=== PATIENT | male | born 1935 | race Caucasian/White ===

== ENCOUNTER 2019-11-22 11:56 | Observation (INO) | payer MEDICARE ==
--- NOTE | 2019-11-22 12:38 | EDM.PDOC ---
ED HPI GENERAL MEDICAL PROBLEM - General Chief Complaint: General Stated Complaint: [facility] Time Seen by Provider: 11/22/19 12:10 Source of Information: Reports: Patient, EMS, Police History Limitations: Reports: No Limitations - History of Present Illness INITIAL COMMENTS - FREE TEXT/NARRATIVE: 84-year-old male, somewhat upset that he is here, was brought in after the police pulled him over for swerving. He admits he has not felt real well the last couple of days and was not able to eat breakfast this morning because he felt nauseated. Denies any pain, denies shortness of breath, denies vomiting, diarrhea, rashes or joint pains. No headache, just generalized malaise. Onset: Unknown/Unsure (Says he has not been feeling well for the last 3 days) Location: Reports: Generalized Associated Symptoms: Reports: Loss of Appetite, Malaise, Nausea/Vomiting ( Nausea but no vomiting), Weakness. Denies: Confusion, Chest Pain, Cough, Fever/ Chills, Headaches, Rash - Related Data Allergies Allergy/AdvReac Type Severity Reaction Status Date / Time Penicillins Allergy Headache Verified 11/22/19 12:00 Home Meds: Home Meds metFORMIN [Glucophage] 500 mg PO BIDMEALS 11/22/19 [History] Past Medical History HEENT History: Reports: Impaired Vision Endocrine/Metabolic History: Reports: Diabetes, Type II - Past Surgical History Head Surgeries/Procedures: Reports: None HEENT Surgical History: Reports: None Endocrine Surgical History: Reports: None Dermatological Surgical History: Reports: None Social & Family History - Tobacco Use Smoking Status *Q: Never Smoker Second Hand Smoke Exposure: No - Caffeine Use Caffeine Use: Reports: Coffee - Recreational Drug Use Recreational Drug Use: No ED ROS GENERAL - Review of Systems Review Of Systems: See Below Constitutional: Reports: Malaise, Decreased Appetite. Denies: Fever, Chills HEENT: Denies: Vision Change Respiratory: Denies: Shortness of Breath Cardiovascular: Denies: Chest Pain GI/Abdominal: Reports: Nausea. Denies: Abdominal Pain, Constipation, Diarrhea, Vomiting : Reports: No Symptoms Musculoskeletal: Reports: No Symptoms Skin: Reports: Pallor Neurological: Reports: Dizziness, Weakness. Denies: Headache Psychiatric: Reports: No Symptoms ED EXAM, GENERAL - Physical Exam Exam: See Below Exam Limited By: No Limitations General Appearance: Alert, No Apparent Distress Eye Exam: Bilateral Eye: Normal Inspection Head: Atraumatic Neck: Supple, Non-Tender Respiratory/Chest: Lungs Clear Cardiovascular: Regular Rate, Rhythm. No: Extra Beats GI/Abdominal: Soft, Non-Tender Extremities: Normal Inspection. No: Pedal Edema Neurological: Alert, Oriented, No Motor/Sensory Deficits Psychiatric: Flat Affect Skin Exam: Warm, Dry Course - Vital Signs Last Recorded V/S: Last Vital Signs Temp 101.7 F H 11/22/19 16:21 Pulse 101 H 11/22/19 15:58 Resp 28 H 11/22/19 15:58 BP 119/78 11/22/19 15:58 Pulse Ox 96 11/22/19 15:58 - Orders/Labs/Meds Orders: Active Orders 24 hr Category Date Time Status Patient Status [ADT] Routine ADT 11/22/19 15:50 Active Antiembolic Devices [RC] .Routine Care 11/22/19 15:50 Active Intake and Output [RC] QSHIFT Care 11/22/19 15:50 Active Notify Provider Vital Signs [RC] ASDIRECTED Care 11/22/19 15:50 Active Oxygen Therapy [RC] PRN Care 11/22/19 15:50 Active RT Aerosol Therapy [RC] ASDIRECTED Care 11/22/19 15:50 Active Up With Assistance [RC] ASDIRECTED Care 11/22/19 15:50 Active VTE/DVT Education [RC] Per Unit Routine Care 11/22/19 15:50 Active Vital Signs [RC] Q4H Care 11/22/19 15:50 Active PT Evaluation and Treatment [CONS] Routine Cons 11/22/19 15:50 Active Consistent Carbohydrate Diet [DIET] Diet 11/22/19 Dinner Active BABESIA MICROTI ANTIBODY PANEL Urgent Lab 11/22/19 11:30 Received CBC W/O DIFF,HEMOGRAM [HEME] AM Lab 11/23/19 05:11 Ordered COMPREHENSIVE METABOLIC PN,CMP [CHEM] AM Lab 11/23/19 05:11 Ordered CULTURE BLOOD [BC] Urgent Lab 11/22/19 14:13 Received CULTURE BLOOD [BC] Urgent Lab 11/22/19 14:16 Received HUMAN GRANULOCYTIC LIU-HGE Urgent Lab 11/22/19 11:30 Received LYME, TOTAL AB TEST/REFLEX Urgent Lab 11/22/19 11:30 Received Acetaminophen [Tylenol] Med 11/22/19 15:50 Active 650 mg PO Q4H PRN Albuterol [Proventil Neb Soln] Med 11/22/19 15:50 Active 2.5 mg NEB Q4H PRN Docusate Sodium/Sennosides [Senna Plus] Med 11/22/19 15:50 Active 1 tab PO BID PRN Doxycycline [Vibramycin] 100 mg Med 11/23/19 06:00 Active Sodium Chloride 0.9% [Normal Saline] 100 ml IV Q12H Ibuprofen [Motrin] Med 11/22/19 15:50 Active 600 mg PO Q6H PRN LORazepam [Ativan] Med 11/22/19 15:50 Active 0.5 mg IVPUSH Q4H PRN Magnesium Hydroxide [Milk of Magnesia] Med 11/22/19 15:50 Active 30 ml PO Q12H PRN Melatonin Med 11/22/19 21:00 Active 9 mg PO BEDTIME Ondansetron [Zofran ODT] Med 11/22/19 15:50 Active 4 mg PO Q6H PRN Ondansetron [Zofran] Med 11/22/19 15:50 Active 4 mg IV Q6H PRN Sodium Chloride 0.9% [Normal Saline] 1,000 ml Med 11/22/19 15:50 Active IV ASDIRECTED metFORMIN [Glucophage] Med 11/22/19 17:00 Pending 500 mg PO BIDMEALS Blood Culture x2 Reflex Set [OM.PC] Urgent Oth 11/22/19 14:05 Ordered Sequential Compression Device [OM.PC] Routine Oth 11/22/19 15:50 Ordered Resuscitation Status Routine Resus Stat 11/22/19 14:49 Ordered Medication Orders Acetaminophen (Tylenol) 650 mg PO Q4H PRN PRN Reason: Pain (Mild 1-3)/fever Albuterol (Proventil Neb Soln) 2.5 mg NEB Q4H PRN PRN Reason: Shortness Of Breath/wheezing Doxycycline Hyclate 100 mg/ (Sodium Chloride) 100 mls @ 100 mls/hr IV Q12H LORETO Sodium Chloride (Normal Saline) 1,000 mls @ 100 mls/hr IV ASDIRECTED LORETO Ibuprofen (Motrin) 600 mg PO Q6H PRN PRN Reason: Pain/Fever Last Admin: 11/22/19 16:21 Dose: 600 mg Lorazepam (Ativan) 0.5 mg IVPUSH Q4H PRN PRN Reason: Nausea/Vomiting Magnesium Hydroxide (Milk Of Magnesia) 30 ml PO Q12H PRN PRN Reason: Constipation Melatonin (Melatonin) 9 mg PO BEDTIME LORETO Metformin HCl (Glucophage) 500 mg PO BIDMEALS LORETO Ondansetron HCl (Zofran Odt) 4 mg PO Q6H PRN PRN Reason: Nausea able to take PO Ondansetron HCl (Zofran) 4 mg IV Q6H PRN PRN Reason: Nausea/Vomiting Senna/Docusate Sodium (Senna Plus) 1 tab PO BID PRN PRN Reason: Constipation Labs: Laboratory Tests 11/22/19 11/22/19 11/22/19 Range/Units 12:40 12:40 14:05 WBC 2.6 L (4.5-11.0) K/uL RBC 4.69 (4.30-5.90) M/uL Hgb 14.9 (12.0-15.0) g/dL Hct 44.8 (40.0-54.0) % MCV 96 (80-98) fL MCH 32 H (27-31) pg MCHC 33 (32-36) % Plt Count 132 L (150-400) K/uL Neut % (Auto) 81 H (36-66) % Lymph % (Auto) 11 L (24-44) % [place] % (Auto) 7 H (2-6) % Eos % (Auto) 0 L (2-4) % Baso % (Auto) 1 (0-1) % Sodium 132 L (140-148) mmol/L Potassium 4.6 (3.6-5.2) mmol/L Chloride 97 L (100-108) mmol/L Carbon Dioxide 26 (21-32) mmol/L Anion Gap 13.6 (5.0-14.0) mmol/L BUN 18 (7-18) mg/dL Creatinine 1.2 (0.8-1.3) mg/dL Est Cr Clr Drug Dosing 49.68 mL/min Estimated GFR (MDRD) 58 L (>60) Glucose 160 H (74-106) mg/dL Lactic Acid 2.3 H (0.4-2.0) mmol/L Calcium 8.8 (8.5-10.1) mg/dL Total Bilirubin 0.6 (0.2-1.0) mg/dL AST 43 H (15-37) U/L ALT 42 (12-78) U/L Alkaline Phosphatase 109 (46-116) U/L Troponin I < 0.017 (0.000-0.056) ng/mL C-Reactive Protein (0.0-0.3) mg/dL Total Protein 7.3 (6.4-8.2) g/dL Albumin 3.5 (3.4-5.0) g/dL Globulin 3.8 H (2.3-3.5) g/dL Albumin/Globulin Ratio 0.9 L (1.2-2.2) Procalcitonin ng/mL 11/22/19 11/22/19 Range/Units 14:05 14:05 WBC (4.5-11.0) K/uL RBC (4.30-5.90) M/uL Hgb (12.0-15.0) g/dL Hct (40.0-54.0) % MCV (80-98) fL MCH (27-31) pg MCHC (32-36) % Plt Count (150-400) K/uL Neut % (Auto) (36-66) % Lymph % (Auto) (24-44) % [place] % (Auto) (2-6) % Eos % (Auto) (2-4) % Baso % (Auto) (0-1) % Sodium (140-148) mmol/L Potassium (3.6-5.2) mmol/L Chloride (100-108) mmol/L Carbon Dioxide (21-32) mmol/L Anion Gap (5.0-14.0) mmol/L BUN (7-18) mg/dL Creatinine (0.8-1.3) mg/dL Est Cr Clr Drug Dosing mL/min Estimated GFR (MDRD) (>60) Glucose (74-106) mg/dL Lactic Acid (0.4-2.0) mmol/L Calcium (8.5-10.1) mg/dL Total Bilirubin (0.2-1.0) mg/dL AST (15-37) U/L ALT (12-78) U/L Alkaline Phosphatase (46-116) U/L Troponin I (0.000-0.056) ng/mL C-Reactive Protein 3.77 H (0.0-0.3) mg/dL Total Protein (6.4-8.2) g/dL Albumin (3.4-5.0) g/dL Globulin (2.3-3.5) g/dL Albumin/Globulin Ratio (1.2-2.2) Procalcitonin 0.41 ng/mL Meds: Medications Generic Name Dose Route Start Last Admin Trade Name Fredaron PRN Reason Stop Dose Admin Acetaminophen 650 mg 11/22/19 15:50 Tylenol PO Q4H PRN Pain (Mild 1-3)/fever Albuterol 2.5 mg 11/22/19 15:50 Proventil Neb Soln NEB Q4H PRN Shortness Of Breath/wheezing Doxycycline Hyclate 100 mg/ 100 mls @ 100 mls/hr 11/23/19 06:00 Sodium Chloride IV Q12H [facility] Sodium Chloride 1,000 mls @ 100 mls/hr 11/22/19 15:50 Normal Saline IV ASDIRECTED [facility] Ibuprofen 600 mg 11/22/19 15:50 11/22/19 16:21 Motrin PO 600 mg Q6H PRN Administration Pain/Fever Lorazepam 0.5 mg 11/22/19 15:50 Ativan IVPUSH Q4H PRN Nausea/Vomiting Magnesium Hydroxide 30 ml 11/22/19 15:50 Milk Of Magnesia PO Q12H PRN Constipation Melatonin 9 mg 11/22/19 21:00 Melatonin PO BEDTIME [facility] Metformin HCl 500 mg 11/22/19 17:00 Glucophage PO BIDMEALS [facility] Ondansetron HCl 4 mg 11/22/19 15:50 Zofran Odt PO Q6H PRN Nausea able to take PO Ondansetron HCl 4 mg 11/22/19 15:50 Zofran IV Q6H PRN Nausea/Vomiting Senna/Docusate Sodium 1 tab 11/22/19 15:50 Senna Plus PO BID PRN Constipation Discontinued Medications Generic Name Dose Route Start Last Admin Trade Name Fredaron PRN Reason Stop Dose Admin Doxycycline Hyclate 200 mg/ 250 mls @ 165 mls/hr 11/22/19 14:03 11/22/19 14: 28 Sodium Chloride IV 11/22/19 15:33 165 mls/hr ONETIME ONE Administration Sodium Chloride 1,000 mls @ 1,000 mls/hr 11/22/19 14:15 11/22/19 14:14 Normal Saline IV 1,000 mls/hr ASDIRECTED [facility] Administration - Re-Assessments/Exams Free Text/Narrative Re-Assessment/Exam: 11/22/19 12:37 CBC CMP and troponin were obtained and the patient will be kept on cardiac monitoring. A call was put into his primary provider as we have no access to his records. 11/22/19 14:39 White count is low, AST is elevated, patient became slightly more confused and weak while in the emergency room and mildly tachycardic. He was assisted up to use the bathroom and became incontinent and more confused. 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 An IV was started, CRP, procalcitonin, tick panel was drawn and after blood cultures 200 mg of IV doxycycline was ordered. I talked to Dr. Kenny of the hospitalist service to consider admission and he kindly agreed to see the patient to evaluate for admission and treatment of anticipated anaplasmosis or other septicemia. 11/22/19 16:54 Procalcitonin is normal, CRP 3.77. IV doxycycline was initiated and patient was admitted. Departure - Departure Time of Disposition: 15:46 Disposition: Admitted As Inpatient 67 Clinical Impression: Confusion, Weakness - Discharge Information Sepsis Event Note - Evaluation Sepsis Screening Result: No Definite Risk - Focused Exam Vital Signs: Vital Signs Temp Pulse Resp BP Pulse Ox 11/22/19 15:12 103 H 30 H 120/71 94 L 11/22/19 13:56 111 H 29 H 136/80 94 L 11/22/19 12:05 99.6 F 110 H 25 H 136/79 93 L 11/22/19 12:04 99.6 F 110 H 25 H 136/79 93 L Date Exam was Performed: 11/22/19 Time Exam was Performed: 16:54 - My Orders Last 24 Hours: My Active Orders 11/22/19 11:30 BABESIA MICROTI ANTIBODY PANEL Urgent HUMAN GRANULOCYTIC LIU-HGE Urgent LYME, TOTAL AB TEST/REFLEX Urgent 11/22/19 14:05 Blood Culture x2 Reflex Set [OM.PC] Urgent 11/22/19 14:13 CULTURE BLOOD [BC] Urgent 11/22/19 14:16 CULTURE BLOOD [BC] Urgent - Assessment/Plan Last 24 Hours: My Active Orders 11/22/19 11:30 BABESIA MICROTI ANTIBODY PANEL Urgent HUMAN GRANULOCYTIC LIU-HGE Urgent LYME, TOTAL AB TEST/REFLEX Urgent 11/22/19 14:05 Blood Culture x2 Reflex Set [OM.PC] Urgent 11/22/19 14:13 CULTURE BLOOD [BC] Urgent 11/22/19 14:16 CULTURE BLOOD [BC] Urgent
[2019-11-22] MEDS ORDERED: Doxycycline 200 MG in Sodium Chloride 0.9% 250 ML IV ONE (14:03)
[2019-11-22] MEDS ORDERED: Sodium Chloride 0.9% 1,000 ML IV SCH (14:15)
--- NOTE | 2019-11-22 14:55 | PCM.HP.2 ---
H&P History of Present Illness - General Date of Service: 11/22/19 Admit Problem/Dx: Admission Diagnosis/Problem Admission Diagnosis/Problem Human anaplasmosis Source of Information: Patient, Provider History Limitations: Reports: No Limitations - History of Present Illness Initial Comments - Free Text/Narative: CC: [place] HPI: Kuldip presents to the emergency room today with weakness and confusion. He was on his way to see the doctor when he was pulled over by police because he was swerving. They noticed that he seemed to be quite confused when they were talking to him so they called an ambulance and had him brought to the emergency room. He is less confused after receiving some IV fluids in the emergency room. He reports that yesterday he noticed the start of some weakness which progressed throughout the day and even more into this morning. He thought he had better get checked out and was worried that he may have Lyme disease because of several recent wood tick bites. He reports a decrease in his appetite but otherwise did not endorse headache, fevers, muscle aches, joint aches, abdominal pain or nausea. He reports pulling off several wood ticks but is not sure if they were regular with ticks or deer ticks. He has not noted any engorged ticks. Up until yesterday his activity level and appetite had been normal. Work-up in the emergency room revealed low-grade fever as well as low white blood cell count and low platelets. AST is mildly elevated. There is concern for acute tick disease with anaplasmosis. Patient is too weak to be safe at home. He will be admitted for hydration and antibiotic therapy. - Related Data Allergies/Adverse Reactions: Allergies Allergy/AdvReac Type Severity Reaction Status Date / Time Penicillins Allergy Headache Verified 11/22/19 12:00 Home Medications: Home Meds metFORMIN [Glucophage] 500 mg PO BIDMEALS 11/22/19 [History] Past Medical History HEENT History: Reports: Impaired Vision Endocrine/Metabolic History: Reports: Diabetes, Type II - Past Surgical History Head Surgeries/Procedures: Reports: None HEENT Surgical History: Reports: None Endocrine Surgical History: Reports: None Dermatological Surgical History: Reports: None Social & Family History - Family History Cardiac: Denies: CAD - Tobacco Use Smoking Status *Q: Never Smoker Second Hand Smoke Exposure: No - Caffeine Use Caffeine Use: Reports: Coffee - Recreational Drug Use Recreational Drug Use: No H&P Review of Systems - Review of Systems: Review Of Systems: See Below Free Text/Narrative: A complete 12 point review of systems was obtained. Pertinent positives and negatives are noted in the history of present illness. All other systems were reviewed and were negative except as noted. Exam - Exam Exam: See Below - Vital Signs Vital Signs: Last Vital Signs Temp 37.6 C 11/22/19 12:05 Pulse 111 H 11/22/19 13:56 Resp 29 H 11/22/19 13:56 BP 136/80 11/22/19 13:56 Pulse Ox 94 L 11/22/19 13:56 Weight: 90.718 kg - Exam Quality Assessment: No: Supplemental Oxygen General: Alert, Oriented, Cooperative. No: Mild Distress HEENT: Conjunctiva Clear. No: Mucosa Moist & [place]al[place] (dry), Scleral Icterus Neck: Supple, Trachea Midline. No: Lymphadenopathy Lungs: Clear to Auscultation. No: Normal Respiratory Effort (mild increase in work of breathing ) Cardiovascular: Regular Rhythm, Tachycardia. No: Systolic Murmur GI/Abdominal Exam: Normal Bowel Sounds, Soft, Non-Tender, No Distention Back Exam: Normal Inspection, Full Range of Motion Extremities: No Pedal Edema. No: Increased Warmth Skin: Warm, Dry. No: Rash Neuro Extensive - Mental Status: Alert, Oriented x3, Nl Response to Commands Neuro Extensive - Motor, Sensory, Reflexes: No: Dysarthria, Abnormal Motor, Tremor Psychiatric: Alert, Normal Affect - Patient Data Lab Results Last 24 hrs: Laboratory Results - last 24 hr 11/22/19 11/22/19 11/22/19 Range/Units 12:40 12:40 14:05 WBC 2.6 L (4.5-11.0) K/uL RBC 4.69 (4.30-5.90) M/uL Hgb 14.9 (12.0-15.0) g/dL Hct 44.8 (40.0-54.0) % MCV 96 (80-98) fL MCH 32 H (27-31) pg MCHC 33 (32-36) % Plt Count 132 L (150-400) K/uL Neut % (Auto) 81 H (36-66) % Lymph % (Auto) 11 L (24-44) % [place] % (Auto) 7 H (2-6) % Eos % (Auto) 0 L (2-4) % Baso % (Auto) 1 (0-1) % Sodium 132 L (140-148) mmol/L Potassium 4.6 (3.6-5.2) mmol/L Chloride 97 L (100-108) mmol/L Carbon Dioxide 26 (21-32) mmol/L Anion Gap 13.6 (5.0-14.0) mmol/L BUN 18 (7-18) mg/dL Creatinine 1.2 (0.8-1.3) mg/dL Est Cr Clr Drug Dosing 49.68 mL/min Estimated GFR (MDRD) 58 L (>60) Glucose 160 H (74-106) mg/dL Lactic Acid 2.3 H (0.4-2.0) mmol/L Calcium 8.8 (8.5-10.1) mg/dL Total Bilirubin 0.6 (0.2-1.0) mg/dL AST 43 H (15-37) U/L ALT 42 (12-78) U/L Alkaline Phosphatase 109 (46-116) U/L Troponin I < 0.017 (0.000-0.056) ng/mL C-Reactive Protein (0.0-0.3) mg/dL Total Protein 7.3 (6.4-8.2) g/dL Albumin 3.5 (3.4-5.0) g/dL Globulin 3.8 H (2.3-3.5) g/dL Albumin/Globulin Ratio 0.9 L (1.2-2.2) Procalcitonin ng/mL 11/22/19 11/22/19 Range/Units 14:05 14:05 WBC (4.5-11.0) K/uL RBC (4.30-5.90) M/uL Hgb (12.0-15.0) g/dL Hct (40.0-54.0) % MCV (80-98) fL MCH (27-31) pg MCHC (32-36) % Plt Count (150-400) K/uL Neut % (Auto) (36-66) % Lymph % (Auto) (24-44) % [place] % (Auto) (2-6) % Eos % (Auto) (2-4) % Baso % (Auto) (0-1) % Sodium (140-148) mmol/L Potassium (3.6-5.2) mmol/L Chloride (100-108) mmol/L Carbon Dioxide (21-32) mmol/L Anion Gap (5.0-14.0) mmol/L BUN (7-18) mg/dL Creatinine (0.8-1.3) mg/dL Est Cr Clr Drug Dosing mL/min Estimated GFR (MDRD) (>60) Glucose (74-106) mg/dL Lactic Acid (0.4-2.0) mmol/L Calcium (8.5-10.1) mg/dL Total Bilirubin (0.2-1.0) mg/dL AST (15-37) U/L ALT (12-78) U/L Alkaline Phosphatase (46-116) U/L Troponin I (0.000-0.056) ng/mL C-Reactive Protein 3.77 H (0.0-0.3) mg/dL Total Protein (6.4-8.2) g/dL Albumin (3.4-5.0) g/dL Globulin (2.3-3.5) g/dL Albumin/Globulin Ratio (1.2-2.2) Procalcitonin 0.41 ng/mL Result Diagrams: 11/22/19 12:40 11/22/19 12:40 Sepsis Event Note - Evaluation Sepsis Screening Result: No Definite Risk Current Stage of Sepsis: Sepsis Possible Source of Sepsis: Other (anaplasmosis) - Focused Exam Sepsis Event Note Statement: Focused Sepsis Exam Completed Vital Signs: Vital Signs Temp Pulse Resp BP Pulse Ox 11/22/19 13:56 111 H 29 H 136/80 94 L 11/22/19 12:05 37.6 C 110 H 25 H 136/79 93 L 11/22/19 12:04 37.6 C 110 H 25 H 136/79 93 L Respiratory Effort Without Exertion: Dyspneic (mild) Heart Sounds: Other (see below) (tachycardic ) Capillary Refill, Detail: Less than/Equal to (</=) 2 Seconds Pulse Description: 2+ Normal Peripheral Pulse Location: Dorsalis Pedis Skin Exam (Focused Sepsis): Normal Turgor Date Exam was Performed: 11/22/19 Time Exam was Performed: 17:12 *Q Meaningful Use (ADM) - VTE Risk Assess *Q Each Risk Factor Represents 1 Point: Obesity ( BMI > 25 kg/m2), Sepsis Total Score 1 Point Risk Factors: 2 Each Risk Factor Represents 2 Points: None Total Score 2 Point Risk Factors: 0 Each Risk Factor Represents 3 Points: Age 75 Years or Greater Total Score 3 Point Risk Factors: 3 Each Risk Factor Represents 5 Points: None Total Score 5 Point Risk Factors: 0 Venous Thromboembolism Risk Factor Score *Q: 5 - Problem List (1) Anaplasmosis SNOMED Code(s): 279547029 ICD Code: A77.49 - OTHER EHRLICHIOSIS Status: Acute Current Visit: Yes (2) Sepsis SNOMED Code(s): 28988356 ICD Code: A41.9 - SEPSIS, UNSPECIFIED ORGANISM Status: Acute Current Visit: Yes Qualifiers: Sepsis type: sepsis due to unspecified organism Sepsis acute organ dysfunction status: without acute organ dysfunction Qualified Code(s): A41.9 - Sepsis, unspecified organism (3) Diabetes mellitus type II, controlled SNOMED Code(s): 43144910, 546846626 ICD Code: E11.9 - TYPE 2 DIABETES MELLITUS WITHOUT COMPLICATIONS Status: Chronic Current Visit: Yes Qualifiers: Diabetes mellitus retirement insulin use: without terminal clerk use Diabetes mellitus complication status: without complication Qualified Code(s): E11.9 - Type 2 diabetes mellitus without complications Problem List Initiated/Reviewed/Updated: Yes Orders Last 24hrs: Active Orders 24 hr Category Date Time Status Patient Status Manage Transfer [TRANSFER] Routine ADT 11/22/19 14:48 Ordered BABESIA MICROTI ANTIBODY PANEL Urgent Lab 11/22/19 11:30 Received CULTURE BLOOD [BC] Urgent Lab 11/22/19 14:13 Received CULTURE BLOOD [BC] Urgent Lab 11/22/19 14:16 Received HUMAN GRANULOCYTIC LIU-HGE Urgent Lab 11/22/19 11:30 Received LYME, TOTAL AB TEST/REFLEX Urgent Lab 11/22/19 11:30 Received Doxycycline [Vibramycin] 200 mg Med 11/22/19 14:03 Active Sodium Chloride 0.9% [Normal Saline] 250 ml IV ONETIME Sodium Chloride 0.9% [Normal Saline] 1,000 ml Med 11/22/19 14:15 Active IV ASDIRECTED Blood Culture x2 Reflex Set [OM.PC] Urgent Oth 11/22/19 14:05 Ordered Resuscitation Status Routine Resus Stat 11/22/19 14:49 Ordered Medication Orders Doxycycline Hyclate 200 mg/ (Sodium Chloride) 250 mls @ 165 mls/hr IV ONETIME ONE Stop: 11/22/19 15:33 Last Admin: 11/22/19 14:28 Dose: 165 mls/hr Sodium Chloride (Normal Saline) 1,000 mls @ 1,000 mls/hr IV ASDIRECTED LORETO Last Admin: 11/22/19 14:14 Dose: 1,000 mls/hr Assessment/Plan Comment:: ASSESSMENT AND PLAN - Acute anaplasmosis, 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 No other obvious source for infection at this time. He has had tick exposures and laboratory studies and symptoms fit. He is quite weak at this time and not safe for outpatient management. -Doxycycline every 12 hours for total of 21 days -IV fluids overnight -Repeat labs in the morning -Physical therapy in the morning -Follow-up tick serologies Type 2 diabetes mellitus, controlled-on metformin as an outpatient. -Continue metformin Maintenance issues - - DVT prophylaxis -mechanical - GI prophylaxis -not indicated - Nutrition -diabetic diet - [place] catheter -not indicated CODE STATUS -full code Admission justification -patient will be referred to observation status for IV antibiotics and IV fluids. Disposition -I would anticipate discharge home tomorrow Primary care physician -Dr. Eldon Kenny M.D. - Mortality Measure Prognosis:: Good
[2019-11-22] MEDS ORDERED: Ondansetron 4 MG Tab.DIS PO PRN (15:50)
[2019-11-22] MEDS ORDERED: Ondansetron 4 MG/2 ML SDV IV PRN (15:50)
[2019-11-22] MEDS ORDERED: Magnesium Hydroxide 400 MG/5 ML Susp 30 ML Cup PO PRN (15:50)
[2019-11-22] MEDS ORDERED: Acetaminophen 325 MG Tab PO PRN (15:50)
[2019-11-22] MEDS ORDERED: Albuterol 0.083% 2.5 MG/3 ML Neb Soln NEB PRN (15:50)
[2019-11-22] MEDS ORDERED: LORazepam 2 MG/ML SDV IVPUSH PRN (15:50)
[2019-11-22] MEDS: Ibuprofen 600 MG Tab PO PRN (16:21)
[2019-11-22] MEDS ORDERED: metFORMIN 500 MG Tab PO SCH (17:00)
[2019-11-22] MEDS: Sodium Chloride 0.9% 1,000 ML IV SCH (20:04)
[2019-11-22] MEDS ORDERED: Melatonin 3 MG Tab PO SCH (21:00)
[2019-11-23] MEDS: Ibuprofen 600 MG Tab PO PRN (05:01)
[2019-11-23] MEDS ORDERED: Doxycycline 100 MG in Sodium Chloride 0.9% 100 ML IV SCH (06:00)
[2019-11-23] MEDS: Sodium Chloride 0.9% 1,000 ML IV SCH (07:41)
[2019-11-23] MEDS ORDERED: metFORMIN 500 MG Tab PO SCH (08:00)
--- NOTE | 2019-11-23 10:39 | PCM.DCSUM1 ---
Discharge Summary - Hospital Course Brief History: 84-year-old male with history of type 2 diabetes mellitus which is well controlled who presented with weakness and confusion. 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 Diagnosis: Stroke: No - Discharge Data Discharge Date: 11/23/19 Discharge Disposition: Home, Self-Care 01 Condition: Good - Referral to Home Health Primary Care Physician: PCP None - Discharge Diagnosis/Problem(s) (1) Anaplasmosis SNOMED Code(s): 391465755 ICD Code: A77.49 - OTHER EHRLICHIOSIS Status: Acute (2) Sepsis SNOMED Code(s): 67154080 ICD Code: A41.9 - SEPSIS, UNSPECIFIED ORGANISM Status: Acute Qualifiers: Sepsis type: sepsis due to unspecified organism Sepsis acute organ dysfunction status: without acute organ dysfunction Qualified Code(s): A41.9 - Sepsis, unspecified organism (3) Diabetes mellitus type II, controlled SNOMED Code(s): 65753392, 211361635 ICD Code: E11.9 - TYPE 2 DIABETES MELLITUS WITHOUT COMPLICATIONS Status: Chronic Qualifiers: Diabetes mellitus group home insulin use: without cds sales advisor use Diabetes mellitus complication status: without complication Qualified Code(s): E11.9 - Type 2 diabetes mellitus without complications - Patient Summary/Data Consults: Consultations 11/22/19 15:50 PT Evaluation and Treatment [CONS] Routine Please Evaluate and Treat. PT Reason for Consult: Strengthening This query below is only for informational purposes and is not editable. Labs Pending at D/C: tick panel Hospital Course: Kuldip presented to the emergency room with weakness and confusion. Work-up in the emergency room was concerning for acute anaplasmosis with low white blood cell count and low platelets as well as mildly elevated AST. He has had multiple tick bites over the past few weeks. There was evidence for sepsis with tachycardia, confusion and tachypnea as well as a mild elevation of his lactic acid. He was not febrile in the emergency room. He received some IV fluids and IV doxycycline and was admitted to the hospital because of his significant weakness. Overnight following admission he did spike a fever to greater than 101. By the morning after admission he is feeling a fair amount better. His confusion has resolved. His vital signs have been stable. His strength has improved and he has been able to be up and walking around. He feels well enough to go home at this time. I believe he is safe for discharge home as the sepsis has resolved and his presenting symptoms have essentially resolved. Plan is for a total of 21 days of doxycycline therapy. Encouraged him to drink fluids to maintain hydration. We did review the potential risk of the doxycycline increasing the sensitivity of the skin to sunlight. He will follow-up if symptoms do not continue to get better or if they get worse. Tick panel was collected in the emergency room and is pending at the time of discharge. - Patient Instructions Diet: Regular Diet as Tolerated Activity: As Tolerated Driving: May Drive Today Showering/Bathing: May Shower Notify Provider of: Fever, Increased Pain, Nausea and/or Vomiting Other/Special Instructions: 1. You were in the hospital for management of weakness and confusion caused by infection with anaplasmosis. Your condition has been improving with antibiotic therapy and IV fluids. To complete treatment for the anaplasmosis infection you will require a total of 21 days of antibiotic therapy. Please take doxycycline 100 mg twice daily with food for 20 more doses. Your first dose outside of the hospital will be due tonight. Try to space the doses out by about 12 hours. It is not unusual to have recurrence of fever in the first 72 hours after antibiotics are started but these temperature elevations should slowly go down. You may use acetaminophen or ibuprofen to help calm down the fevers when they occur. They should resolve within 3 to 4 days. - Discharge Plan *PRESCRIPTION DRUG MONITORING PROGRAM REVIEWED*: Not Applicable *COPY OF PRESCRIPTION DRUG MONITORING REPORT IN PATIENT RUBA: Not Applicable Prescriptions/Med Rec: Doxycycline Hyclate 100 mg PO BID #40 capsule Home Medications: Home Meds metFORMIN [Glucophage] 1,000 mg PO BIDMEALS 11/22/19 [History] Doxycycline Hyclate 100 mg PO BID #40 capsule 11/23/19 [Rx] Oxygen Therapy Mode: Room Air Patient Handouts: Doxycycline tablets or capsules, Ehrlichiosis and Anaplasmosis Referrals: Eldon Roper MD [Physician] - (Follow-up if symptoms do not continue to get better or if they get worse) - Discharge Summary/Plan Comment DC Time >30 min.: No - Patient Data Vitals - Most Recent: Last Vital Signs Temp 35.8 C L 11/23/19 07:27 Pulse 71 11/23/19 07:27 Resp 16 11/23/19 07:27 BP 103/60 11/23/19 05:00 Pulse Ox 94 L 11/23/19 07:27 Weight - Most Recent: 90.718 kg I&O - Last 24 hours: Intake & Output 11/22/19 11/23/19 11/23/19 22:59 06:59 14:59 Output Total 300 600 200 Balance -300 -600 -200 Lab Results - Last 24 hrs: Laboratory Results - last 24 hr 11/22/19 11/22/19 11/22/19 Range/Units 12:40 12:40 14:05 WBC 2.6 L (4.5-11.0) K/uL RBC 4.69 (4.30-5.90) M/uL Hgb 14.9 (12.0-15.0) g/dL Hct 44.8 (40.0-54.0) % MCV 96 (80-98) fL MCH 32 H (27-31) pg MCHC 33 (32-36) % Plt Count 132 L (150-400) K/uL Neut % (Auto) 81 H (36-66) % Lymph % (Auto) 11 L (24-44) % Haines % (Auto) 7 H (2-6) % Eos % (Auto) 0 L (2-4) % Baso % (Auto) 1 (0-1) % Sodium 132 L (140-148) mmol/L Potassium 4.6 (3.6-5.2) mmol/L Chloride 97 L (100-108) mmol/L Carbon Dioxide 26 (21-32) mmol/L Anion Gap 13.6 (5.0-14.0) mmol/L BUN 18 (7-18) mg/dL Creatinine 1.2 (0.8-1.3) mg/dL Est Cr Clr Drug Dosing 49.68 mL/min Estimated GFR (MDRD) 58 L (>60) Glucose 160 H (74-106) mg/dL Lactic Acid 2.3 H (0.4-2.0) mmol/L Calcium 8.8 (8.5-10.1) mg/dL Total Bilirubin 0.6 (0.2-1.0) mg/dL AST 43 H (15-37) U/L ALT 42 (12-78) U/L Alkaline Phosphatase 109 (46-116) U/L Troponin I < 0.017 (0.000-0.056) ng/mL C-Reactive Protein (0.0-0.3) mg/dL Total Protein 7.3 (6.4-8.2) g/dL Albumin 3.5 (3.4-5.0) g/dL Globulin 3.8 H (2.3-3.5) g/dL Albumin/Globulin Ratio 0.9 L (1.2-2.2) Procalcitonin ng/mL 11/22/19 11/22/19 11/22/19 Range/Units 14:05 14:05 17:30 WBC (4.5-11.0) K/uL RBC (4.30-5.90) M/uL Hgb (12.0-15.0) g/dL Hct (40.0-54.0) % MCV (80-98) fL MCH (27-31) pg MCHC (32-36) % Plt Count (150-400) K/uL Neut % (Auto) (36-66) % Lymph % (Auto) (24-44) % Haines % (Auto) (2-6) % Eos % (Auto) (2-4) % Baso % (Auto) (0-1) % Sodium (140-148) mmol/L Potassium (3.6-5.2) mmol/L Chloride (100-108) mmol/L Carbon Dioxide (21-32) mmol/L Anion Gap (5.0-14.0) mmol/L BUN (7-18) mg/dL Creatinine (0.8-1.3) mg/dL Est Cr Clr Drug Dosing mL/min Estimated GFR (MDRD) (>60) Glucose (74-106) mg/dL Lactic Acid 1.5 (0.4-2.0) mmol/L Calcium (8.5-10.1) mg/dL Total Bilirubin (0.2-1.0) mg/dL AST (15-37) U/L ALT (12-78) U/L Alkaline Phosphatase (46-116) U/L Troponin I (0.000-0.056) ng/mL C-Reactive Protein 3.77 H (0.0-0.3) mg/dL Total Protein (6.4-8.2) g/dL Albumin (3.4-5.0) g/dL Globulin (2.3-3.5) g/dL Albumin/Globulin Ratio (1.2-2.2) Procalcitonin 0.41 ng/mL 11/23/19 11/23/19 Range/Units 04:55 04:55 WBC 2.3 L (4.5-11.0) K/uL RBC 4.27 L (4.30-5.90) M/uL Hgb 13.5 (12.0-15.0) g/dL Hct 41.1 (40.0-54.0) % MCV 96 (80-98) fL MCH 32 H (27-31) pg MCHC 33 (32-36) % Plt Count 103 L (150-400) K/uL Neut % (Auto) (36-66) % Lymph % (Auto) (24-44) % Haines % (Auto) (2-6) % Eos % (Auto) (2-4) % Baso % (Auto) (0-1) % Sodium 135 L (140-148) mmol/L Potassium 4.2 (3.6-5.2) mmol/L Chloride 101 (100-108) mmol/L Carbon Dioxide 27 (21-32) mmol/L Anion Gap 11.2 (5.0-14.0) mmol/L BUN 17 (7-18) mg/dL Creatinine 1.0 (0.8-1.3) mg/dL Est Cr Clr Drug Dosing 59.61 mL/min Estimated GFR (MDRD) > 60 (>60) Glucose 135 H (74-106) mg/dL Lactic Acid (0.4-2.0) mmol/L Calcium 8.1 L (8.5-10.1) mg/dL Total Bilirubin 0.6 (0.2-1.0) mg/dL AST 63 H (15-37) U/L ALT 56 (12-78) U/L Alkaline Phosphatase 92 (46-116) U/L Troponin I (0.000-0.056) ng/mL C-Reactive Protein (0.0-0.3) mg/dL Total Protein 6.2 L (6.4-8.2) g/dL Albumin 2.8 L (3.4-5.0) g/dL Globulin 3.4 (2.3-3.5) g/dL Albumin/Globulin Ratio 0.8 L (1.2-2.2) Procalcitonin ng/mL Med Orders - Current: Current Medications Acetaminophen (Tylenol) 650 mg PO Q4H PRN PRN Reason: Pain (Mild 1-3)/fever Albuterol (Proventil Neb Soln) 2.5 mg NEB Q4H PRN PRN Reason: Shortness Of Breath/wheezing Doxycycline Hyclate 100 mg/ (Sodium Chloride) 100 mls @ 100 mls/hr IV Q12H [facility] Last Admin: 11/23/19 05:01 Dose: 100 mls/hr Sodium Chloride (Normal Saline) 1,000 mls @ 100 mls/hr IV ASDIRECTED [facility] Last Admin: 11/23/19 07:41 Dose: 100 mls/hr Ibuprofen (Motrin) 600 mg PO Q6H PRN PRN Reason: Pain/Fever Last Admin: 11/23/19 05:01 Dose: 600 mg Lorazepam (Ativan) 0.5 mg IVPUSH Q4H PRN PRN Reason: Nausea/Vomiting Magnesium Hydroxide (Milk Of Magnesia) 30 ml PO Q12H PRN PRN Reason: Constipation Melatonin (Melatonin) 9 mg PO BEDTIME [facility] Last Admin: 11/22/19 22:02 Dose: Not Given Metformin HCl (Glucophage) 1,000 mg PO BIDMEALS [facility] Last Admin: 11/23/19 07:43 Dose: 1,000 mg Ondansetron HCl (Zofran Odt) 4 mg PO Q6H PRN PRN Reason: Nausea able to take PO Ondansetron HCl (Zofran) 4 mg IV Q6H PRN PRN Reason: Nausea/Vomiting Senna/Docusate Sodium (Senna Plus) 1 tab PO BID PRN PRN Reason: Constipation Discontinued Medications Doxycycline Hyclate 200 mg/ (Sodium Chloride) 250 mls @ 165 mls/hr IV ONETIME ONE Stop: 11/22/19 15:33 Last Admin: 11/22/19 14:28 Dose: 165 mls/hr Sodium Chloride (Normal Saline) 1,000 mls @ 1,000 mls/hr IV ASDIRECTED [facility] Last Admin: 11/22/19 14:14 Dose: 1,000 mls/hr Metformin HCl (Glucophage) 500 mg PO BIDMEALS [facility] Last Admin: 11/22/19 18:48 Dose: Not Given
[2019-11-24 12:12] LABS: LYME IGG/IGM AB <0.91 ISR (0.00-0.90)
[2019-11-24 13:13] LABS: HGE IGG TITER Negative (Neg:<1:64); HGE IGM TITER Negative (Neg:<1:20)
[2019-11-24 16:13] LABS: BABESIA MICROTI IGG <1:10 (Neg:<1:10); BABESIA MICROTI IGM <1:10 (Neg:<1:10)
== END 2019-11-23 12:45 | disposition home or self-care (01) ==
LOC: JP.ED 11:56 → JP.MS 14:48 → UNDOADMOB 15:31 → JP.MS 15:50
PROVIDERS: ADMIT Internal Medicine; ATTEND Internal Medicine
DX: A77.49 Other ehrlichiosis (principal); A41.9 Sepsis, unspecified organism; E11.9 Type 2 diabetes mellitus without complications; Z79.84 Long term (current) use of oral hypoglycemic drugs; Z88.0 Allergy status to penicillin
CPT/HCPCS: 36415; 80053; 83605; 84145; 84484; 85025; 85027; 86140; 86618; 86666; 86753; 87040; 96361; 96365; 96366; 97162; 97530; 99285; A9270; G0378; J3490; J7030; J7050; 99283

== ENCOUNTER 2021-10-01 11:23 | Day surgery (SDC) | payer MEDICARE ==
[2021-10-01] MEDS ORDERED: Lidocaine 1% 5 ML VIAL INJECT ONE (11:44)
[2021-10-01] MEDS ORDERED: Diphtheria,Pertussis(Acell),Tetanus Vaccine 0.5 ML Syringe IM ONE (11:48)
[2021-10-01] MEDS ORDERED: Propofol 200 MG/20 ML SDV ONE (15:27)
[2021-10-01] MEDS ORDERED: fentaNYL 100 MCG/2 ML SDV ONE (15:27)
[2021-10-01] MEDS ORDERED: Midazolam 1 MG/ML 2 ML SDV ONE (15:27)
[2021-10-01] MEDS ORDERED: Lidocaine 0.5% 50 ML SDV ONE (15:29)
[2021-10-01] MEDS ORDERED: Bupivacaine 0.5% 50 ML MDV ONE (16:10)
== END 2021-10-01 18:40 | disposition home or self-care (01) ==
LOC: JP.ED 11:23 → JP.SDS 13:12
PROVIDERS: ATTEND Specialist
DX: S68.623A Partial traumatic transphalangeal amputation of left middle finger, initial encounter (principal); H54.7 Unspecified visual loss; E11.9 Type 2 diabetes mellitus without complications; Z88.0 Allergy status to penicillin; Z79.84 Long term (current) use of oral hypoglycemic drugs; X58.XXXA Exposure to other specified factors, initial encounter
CPT/HCPCS: 26952; 73140; 90471; 90715; 99284; J2250; J2704; J3010; J3490

== ENCOUNTER 2022-01-01 19:38 | Inpatient (IN) | payer MEDICARE ==
[2022-01-01] MEDS ORDERED: REMDESIVIR 200 MG in Sodium Chloride 0.9% 250 ML IV ONE ×2 (21:03→23:00)
[2022-01-01] MEDS ORDERED: Acetaminophen 325 MG Tab PO PRN ×3 (21:03→23:29)
[2022-01-01] MEDS ORDERED: Enoxaparin 40 MG/0.4 ML Syringe SUBCUT ONE ×2 (21:05→23:45)
[2022-01-01] MEDS ORDERED: Dexamethasone 4 MG/ML SDV IVPUSH SCH ×2 (21:15→23:45)
[2022-01-01] MEDS ORDERED: Albuterol 8 GM Inhaler INH PRN (22:18)
[2022-01-01] MEDS ORDERED: Albuterol/Ipratropium 4 GM Inhalation Spray INH PRN (22:18)
[2022-01-01] MEDS ORDERED: Ondansetron 4 MG Tab.DIS PO PRN (23:29)
[2022-01-01] MEDS ORDERED: Ondansetron 4 MG/2 ML SDV IV PRN (23:29)
[2022-01-01] MEDS ORDERED: LORazepam 2 MG/ML SDV IV PRN (23:29)
[2022-01-01] MEDS ORDERED: oxyCODONE 5 MG Tab PO PRN (23:29)
[2022-01-01] MEDS ORDERED: Morphine 2 MG/ML SYRINGE IVPUSH PRN (23:29)
[2022-01-02] MEDS: Pantoprazole 40 MG Vial IV SCH ×2 (01:23→20:24)
[2022-01-02] MEDS: Insulin Lispro 100 Unit/ML 3 ML KwikPen SUBCUT SCH ×4 (08:48→21:23)
[2022-01-02] MEDS: Multivitamins with Iron/Calcium/Folic Acid/Minerals Tab PO SCH (08:49)
[2022-01-02] MEDS: Cholecalciferol (Vitamin D3) 25 MCG Tab PO SCH (08:49)
[2022-01-02] MEDS ORDERED: REMDESIVIR 100 MG in Sodium Chloride 0.9% 100 ML IV SCH (21:00)
[2022-01-02] MEDS ORDERED: Enoxaparin 40 MG/0.4 ML Syringe SUBCUT SCH (21:00)
[2022-01-02] MEDS ORDERED: Dexamethasone 4 MG/ML SDV IVPUSH SCH (21:00)
[2022-01-03] MEDS: Insulin Lispro 100 Unit/ML 3 ML KwikPen SUBCUT SCH ×3 (08:12→17:21)
[2022-01-03] MEDS: Multivitamins with Iron/Calcium/Folic Acid/Minerals Tab PO SCH (08:32)
[2022-01-03] MEDS: Cholecalciferol (Vitamin D3) 25 MCG Tab PO SCH (08:32)
[2022-01-03 16:27] VITALS: BP 115/78; PULSE 69
[2022-01-03] MEDS ORDERED: REMDESIVIR 100 MG in Sodium Chloride 0.9% 100 ML IV SCH (17:00)
[2022-01-03] MEDS ORDERED: Pantoprazole 40 MG Tab.CR PO SCH (21:00)
== END 2022-01-03 19:02 | disposition home or self-care (01) | DRG 178 ==
LOC: JP.ED 19:38 → JP.MS 21:36
PROVIDERS: ADMIT Internal Medicine; ATTEND Internal Medicine
PROC: 8E0ZXY6 Isolation (ICD-10-PCS; principal; 2022-01-01)
PROC: XW033E5 Introduction of Remdesivir Anti-infective into Peripheral Vein, Percutaneous Approach, New Technology Group 5 (ICD-10-PCS; 2022-01-01)
PROC: 3E0333Z Introduction of Anti-inflammatory into Peripheral Vein, Percutaneous Approach (ICD-10-PCS; 2022-01-01)
DX: U07.1 COVID-19 (principal); Z88.0 Allergy status to penicillin; E87.1 Hypo-osmolality and hyponatremia; E87.2 Acidosis; Z28.311 Partially vaccinated for COVID-19; Z79.84 Long term (current) use of oral hypoglycemic drugs; E11.9 Type 2 diabetes mellitus without complications; R09.02 Hypoxemia; Z66 Do not resuscitate; N40.0 Benign prostatic hyperplasia without lower urinary tract symptoms; Z89.022 Acquired absence of left finger(s); Z79.899 Other long term (current) drug therapy
CPT/HCPCS: 36415; 36600; 71045; 71045-26; 80048; 80076; 81001; 82803; 82947; 83605; 84145; 85025; 86140; 99284; 99285; A9270-GY; C9113; J1100; J1650; J1815; J3490; J7050; U0002

== ENCOUNTER 2022-04-23 19:20 | Inpatient (IN) | payer MEDICARE ==
[2022-04-23 20:20] LABS: ESTIMATED GFR 49 mL/min (>60)
[2022-04-23] MEDS ORDERED: cefTRIAXone 2 GM in Sodium Chloride 0.9% 50 ML IV ONE (20:36)
[2022-04-23] MEDS ORDERED: Sodium Chloride 0.9% 10 ML Syringe FLUSH PRN ×2 (20:36→21:24)
[2022-04-23] MEDS ORDERED: Sodium Chloride 0.9% 1,000 ML IV SCH ×3 (20:45→23:16)
[2022-04-23] MEDS ORDERED: Calcium Gluconate 10% 1 GM/10 ML SDV IVPUSH ONE (21:02)
[2022-04-23 21:09] LABS: CORONAVIRUS COVID-19 NAA POSITIVE (NEGATIVE)
[2022-04-23] MEDS ORDERED: Amiodarone 150 MG/3 ML SDV IVPUSH ONE (21:24)
[2022-04-23] MEDS ORDERED: Norepinephrine Bit/D5W Premix 4 MG in Premix Bag 1 BAG IV SCH (22:00)
[2022-04-23] MEDS ORDERED: Digoxin 500 MCG/2 ML Amp IVPUSH ONE (22:01)
[2022-04-23] MEDS ORDERED: Ondansetron 4 MG/2 ML SDV IV PRN (23:16)
[2022-04-23] MEDS ORDERED: Benzonatate 100 MG Cap PO PRN (23:16)
[2022-04-23] MEDS ORDERED: Melatonin 3 MG Tab PO PRN (23:16)
[2022-04-23] MEDS ORDERED: Codeine/guaiFENesin 10-100 MG/5 ML Syrup 5 ML Cup PO PRN (23:16)
[2022-04-23] MEDS ORDERED: Albuterol 0.083% 2.5 MG/3 ML Neb Soln NEB PRN (23:16)
[2022-04-23] MEDS ORDERED: Magnesium Hydroxide 400 MG/5 ML Susp 30 ML Cup PO PRN (23:16)
[2022-04-23] MEDS ORDERED: Doxycycline 100 MG in Sodium Chloride 0.9% 100 ML IV SCH (23:16)
[2022-04-23] MEDS ORDERED: Ondansetron 4 MG Tab.DIS PO PRN (23:16)
[2022-04-23] MEDS ORDERED: Enoxaparin 40 MG/0.4 ML Syringe SUBCUT ONE (23:30)
[2022-04-23] MEDS: Amiodarone 200 MG Tab PO SCH (23:42)
[2022-04-23] MEDS: Acetaminophen 325 MG Tab PO PRN (23:42)
[2022-04-23] MEDS: Oseltamivir 30 MG Cap PO SCH (23:53)
[2022-04-24] MEDS: Acetaminophen 325 MG Tab PO PRN ×3 (03:10→22:36)
[2022-04-24] MEDS: Albuterol/Ipratropium 3.0-0.5 MG/3 ML Neb Soln NEB SCH ×4 (07:39→21:58)
[2022-04-24] MEDS: Insulin Lispro 100 Unit/ML 3 ML KwikPen SUBCUT SCH ×4 (08:20→21:54)
[2022-04-24] MEDS: Oseltamivir 30 MG Cap PO SCH ×2 (08:24→21:54)
[2022-04-24] MEDS: Amiodarone 200 MG Tab PO SCH ×2 (08:24→21:53)
[2022-04-24] MEDS ORDERED: Doxycycline 100 MG in Sodium Chloride 0.9% 100 ML IV SCH (11:00)
[2022-04-24] MEDS: Doxycycline 100 MG Cap PO SCH (21:54)
[2022-04-24] MEDS: cefTRIAXone 1 GM in Sodium Chloride 0.9% 50 ML IV SCH (21:55)
[2022-04-24] MEDS: Enoxaparin 40 MG/0.4 ML Syringe SUBCUT SCH (21:56)
[2022-04-25] MEDS: Albuterol/Ipratropium 3.0-0.5 MG/3 ML Neb Soln NEB SCH ×4 (07:37→20:24)
[2022-04-25] MEDS: Insulin Lispro 100 Unit/ML 3 ML KwikPen SUBCUT SCH ×4 (07:54→21:13)
[2022-04-25] MEDS: Amiodarone 200 MG Tab PO SCH ×2 (08:02→20:24)
[2022-04-25] MEDS: Oseltamivir 30 MG Cap PO SCH ×2 (08:03→20:25)
[2022-04-25] MEDS: Doxycycline 100 MG Cap PO SCH ×2 (09:02→21:13)
[2022-04-25] MEDS ORDERED: methylPREDNISolone Sodium Succinate 125 MG/2 ML SDV IVPUSH ONE (12:00)
[2022-04-25] MEDS: Enoxaparin 40 MG/0.4 ML Syringe SUBCUT SCH (20:24)
[2022-04-25] MEDS: cefTRIAXone 1 GM in Sodium Chloride 0.9% 50 ML IV SCH (20:52)
[2022-04-25] MEDS ORDERED: Insulin Lispro 100 Units/ML 3 ML Vial SUBCUT ONE (21:22)
[2022-04-26] MEDS: Albuterol/Ipratropium 3.0-0.5 MG/3 ML Neb Soln NEB SCH ×4 (07:11→20:35)
[2022-04-26] MEDS: Insulin Lispro 100 Unit/ML 3 ML KwikPen SUBCUT SCH ×4 (07:51→21:11)
[2022-04-26] MEDS: Oseltamivir 30 MG Cap PO SCH ×2 (08:00→20:39)
[2022-04-26] MEDS: Amiodarone 200 MG Tab PO SCH ×2 (08:00→20:37)
[2022-04-26] MEDS: Doxycycline 100 MG Cap PO SCH ×2 (09:30→21:11)
[2022-04-26] MEDS: Aspirin 81 MG Tab.EC PO SCH (18:05)
[2022-04-26] MEDS: cefTRIAXone 1 GM in Sodium Chloride 0.9% 50 ML IV SCH (20:35)
[2022-04-26] MEDS: Enoxaparin 40 MG/0.4 ML Syringe SUBCUT SCH (20:38)
[2022-04-27] MEDS: Albuterol/Ipratropium 3.0-0.5 MG/3 ML Neb Soln NEB SCH ×2 (07:02→10:56)
[2022-04-27] MEDS: Insulin Lispro 100 Unit/ML 3 ML KwikPen SUBCUT SCH ×2 (07:35→11:42)
[2022-04-27] MEDS: Aspirin 81 MG Tab.EC PO SCH (08:32)
[2022-04-27] MEDS: Oseltamivir 30 MG Cap PO SCH (08:33)
[2022-04-27] MEDS: Amiodarone 200 MG Tab PO SCH (08:33)
[2022-04-27] MEDS: Doxycycline 100 MG Cap PO SCH (09:56)
== END 2022-04-27 11:56 | disposition home or self-care (01) | DRG 871 ==
LOC: JP.ED 19:20 → JP.ICU 22:25
PROVIDERS: ADMIT Internal Medicine; ATTEND Internal Medicine
DX: A41.9 Sepsis, unspecified organism (principal); J10.00 Influenza due to other identified influenza virus with unspecified type of pneumonia; J96.01 Acute respiratory failure with hypoxia; N17.9 Acute kidney failure, unspecified; R65.20 Severe sepsis without septic shock; E11.9 Type 2 diabetes mellitus without complications; I48.91 Unspecified atrial fibrillation; N18.30 Chronic kidney disease, stage 3 unspecified; Z79.01 Long term (current) use of anticoagulants; N40.0 Benign prostatic hyperplasia without lower urinary tract symptoms; Z86.718 Personal history of other venous thrombosis and embolism; Z20.822 Contact with and (suspected) exposure to COVID-19; E11.22 Type 2 diabetes mellitus with diabetic chronic kidney disease; Z88.0 Allergy status to penicillin; Z79.84 Long term (current) use of oral hypoglycemic drugs; E83.51 Hypocalcemia; Z79.4 Long term (current) use of insulin; Z79.899 Other long term (current) drug therapy
CPT/HCPCS: 0241U; 36415; 71046; 80048; 80053; 81001; 82947; 83605; 84145; 85025; 85027; 85379; 86140; 87040; 93005; 94640; 97162; 97530; A9270-GY; G0008; J0282; J0610; J0696; J1650; J1815; J1815-GY; J2930; J3490; J7030; J7620; U0002

== ENCOUNTER 2022-11-22 11:31 | Emergency (ER) | payer MEDICARE ==
[2022-11-22 12:54] LABS: HEMATOCRIT 38.3 % (38.4-49.7); HEMOGLOBIN 13.1 g/dL (12.9-16.9); MEAN CORPUSCULAR HEMOGLOBIN 33.2 pg (31.6-35.5); MEAN CORPUSCULAR HGB CONC 34.2 g/dL (31.6-35.5); MEAN CORPUSCULAR VOLUME 97.2 fL (81.4-99.0); RED BLOOD CELL COUNT 3.94 M/uL (4.14-5.76); WHITE BLOOD CELL COUNT,WBC 3.9 K/uL (3.2-11.0)
[2022-11-22 13:06] LABS: APPEARANCE,URINE CLEAR (CLEAR); BILIRUBIN,URINE NEGATIVE (NEGATIVE); COLOR,URINE YELLOW (YELLOW); GLUCOSE,URINE 100 mg/dL (NEGATIVE); KETONES,URINE NEGATIVE (NEGATIVE); LEUKOCYTE ESTERASE,URINE NEGATIVE (NEGATIVE); NITRITE,URINE NEGATIVE (NEGATIVE); OCCULT BLOOD,URINE NEGATIVE (NEGATIVE); PROTEIN,URINE NEGATIVE (NEGATIVE); UROBILINOGEN,URINE 0.2 EU/dL (0.2-1.0)
[2022-11-22 13:12] LABS: PROTHROMBIN TIME 10.4 sec (9.2-10.6)
[2022-11-22 13:13] LABS: AMORPHOUS SEDIMENT,URINE NOT SEEN; BACTERIA,URINE NOT SEEN; EPITHELIAL CELLS,URINE NOT SEEN; MUCUS,URINE NOT SEEN; RBC,URINE 0-5 (0-5); WBC,URINE NOT SEEN (0-5)
[2022-11-22 13:22] LABS: A/G RATIO 0.9 (1.2-2.2); ALANINE AMINOTRANSFERASE,ALT 23 U/L (12-78); ALBUMIN 3.1 g/dL (3.4-5.0); ALKALINE PHOSPHATASE 106 U/L (46-116); ASPARTATE AMNIOTRANSFERASE,AST 21 U/L (15-37); BILIRUBIN TOTAL 0.4 mg/dL (0.2-1.0); BLOOD UREA NITROGEN,BUN 24 mg/dL (7-18); CALCIUM 8.6 mg/dL (8.5-10.1); CARBON DIOXIDE,CO2 28 mmol/L (21-32); CHLORIDE,CL 103 mmol/L (100-108); CREATININE 1.6 mg/dL (0.8-1.3); ESTIMATED GFR 42 mL/min (>60); GLUCOSE RANDOM 186 mg/dL (74-106); POTASSIUM,K 4.4 mmol/L (3.6-5.2); PRO B-TYPE NATRIUR PEPT,BNPPRO 82 pg/mL (5-450); PROTEIN TOTAL,TP 6.6 g/dL (6.4-8.2); SODIUM,NA 138 mmol/L (140-148)
[2022-11-22 13:23] LABS: ANION GAP 11.4 mmol/L (5.0-14.0)
[2022-11-22 13:45] LABS: LYME AB IgG Negative (Negative); LYME AB IgM Negative (Negative)
== END 2022-11-22 13:59 | disposition home or self-care (01) ==
LOC: JP.ED 11:31
DX: T14.8XXA Other injury of unspecified body region, initial encounter (principal); E11.9 Type 2 diabetes mellitus without complications; N28.9 Disorder of kidney and ureter, unspecified; Z86.16 Personal history of COVID-19; Z88.0 Allergy status to penicillin; Z79.84 Long term (current) use of oral hypoglycemic drugs; Z79.01 Long term (current) use of anticoagulants; Z20.822 Contact with and (suspected) exposure to COVID-19; W57.XXXA Bitten or stung by nonvenomous insect and other nonvenomous arthropods, initial encounter
CPT/HCPCS: 36415; 71046; 80053; 81001; 83605; 83880; 84145; 84484; 85027; 85610; 86618; 86666; 86753; 93005; 99285; U0002

== ENCOUNTER 2024-10-04 17:52 | Emergency (ER) | payer MEDICARE ==
[2024-10-04 20:39] LABS: BASOPHILS ABSOLUTE AUTO 0.03 K/uL (0.00-0.10); BASOPHILS PERCENT AUTO 0.8 % (0.1-1.3); EOSINOPHILS ABSOLUTE AUTO 0.04 K/uL (0.00-0.40); HEMATOCRIT 39.3 % (38.4-49.7); HEMOGLOBIN 12.9 g/dL (12.9-16.9); IMMATURE GRAN PERCENT AUTO 0.3 % (0.0-0.7); LYMPHOCYTES PERCENT AUTO 15.3 % (11.4-47.7); MEAN CORPUSCULAR HEMOGLOBIN 29.9 pg (31.6-35.5); MEAN CORPUSCULAR HGB CONC 32.8 g/dL (31.6-35.5); MONOCYTES ABSOLUTE AUTO 0.73 K/uL (0.20-0.90); MONOCYTES PERCENT AUTO 18.6 % (3.3-12.6); NEUTROPHILS ABSOLUTE AUTO 2.52 K/uL (1.0-7.6); PLATELET COUNT,PLT 171 K/uL (130-375); RED BLOOD CELL COUNT 4.32 M/uL (4.14-5.76); WHITE BLOOD CELL COUNT,WBC 3.9 K/uL (3.2-11.0)
[2024-10-04] MEDS: Albuterol 0.083% 2.5 MG/3 ML Neb Soln NEB ONE (20:39)
[2024-10-04 20:40] LABS: IMMATURE GRAN ABSOLUTE AUTO 0.01 K/uL (0.00-0.23)
[2024-10-04 21:02] LABS: A/G RATIO 0.8 (1.2-2.2); ALANINE AMINOTRANSFERASE,ALT 21 U/L (12-78); ALBUMIN 3.3 g/dL (3.4-5.0); ALKALINE PHOSPHATASE 129 U/L (46-116); ASPARTATE AMNIOTRANSFERASE,AST 18 U/L (15-37); BILIRUBIN TOTAL 0.3 mg/dL (0.2-1.0); BLOOD UREA NITROGEN,BUN 18 mg/dL (7-18); CALCIUM 9.6 mg/dL (8.5-10.1); CARBON DIOXIDE,CO2 26 mmol/L (21-32); CHLORIDE,CL 101 mmol/L (100-108); CREATININE 1.4 mg/dL (0.8-1.3); EST CRCL DRUG DOSING (CG) 37.66 mL/min; ESTIMATED GFR 48 mL/min (>60); GLUCOSE RANDOM 166 mg/dL (74-106); POTASSIUM,K 4.6 mmol/L (3.6-5.2); PROTEIN TOTAL,TP 7.3 g/dL (6.4-8.2); SODIUM,NA 138 mmol/L (140-148)
[2024-10-04 21:04] LABS: ANION GAP 15.6 mmol/L (5.0-14.0)
[2024-10-04 22:20] LABS: CORONAVIRUS COVID-19 NAA NEGATIVE (NEGATIVE); INFLUENZA A NAA NEGATIVE (NEGATIVE); INFLUENZA B NAA NEGATIVE (NEGATIVE); RESPIRATORY SYNCYTIAL VIR NAA NEGATIVE (NEGATIVE)
== END 2024-10-04 23:16 | disposition home or self-care (01) ==
LOC: JP.ED 17:52
DX: J40 Bronchitis, not specified as acute or chronic (principal); J98.01 Acute bronchospasm; I10 Essential (primary) hypertension; E78.00 Pure hypercholesterolemia, unspecified; E03.9 Hypothyroidism, unspecified; Z88.0 Allergy status to penicillin; Z79.84 Long term (current) use of oral hypoglycemic drugs; Z79.890 Hormone replacement therapy; Z79.899 Other long term (current) drug therapy; Z86.16 Personal history of COVID-19
CPT/HCPCS: 0241U; 36415; 71046; 80053; 83880; 85025; 94640; 99283; 99285; A9270

== ENCOUNTER 2024-10-06 12:44 | Inpatient (IN) | payer MEDICARE ==
[2024-10-06] MEDS ORDERED: Ondansetron 4 MG Tab.DIS PO PRN (18:40)
[2024-10-06] MEDS ORDERED: Melatonin 3 MG Tab PO PRN (18:40)
[2024-10-06] MEDS ORDERED: Sennosides/Docusate Sodium 50-8.6 MG Tab PO PRN (18:40)
[2024-10-06] MEDS ORDERED: Magnesium Hydroxide 400 MG/5 ML Susp 30 ML Cup PO PRN (18:40)
[2024-10-06] MEDS ORDERED: Ondansetron 4 MG/2 ML SDV IV PRN (18:40)
[2024-10-06] MEDS ORDERED: Albuterol 0.083% 2.5 MG/3 ML Neb Soln NEB PRN (18:40)
[2024-10-06 19:02] LABS: HEMATOCRIT 36.7 % (38.4-49.7); HEMOGLOBIN 12.2 g/dL (12.9-16.9); MEAN CORPUSCULAR HEMOGLOBIN 30.1 pg (31.6-35.5); MEAN CORPUSCULAR HGB CONC 33.2 g/dL (31.6-35.5); MEAN CORPUSCULAR VOLUME 90.6 fL (81.4-99.0); RED BLOOD CELL COUNT 4.05 M/uL (4.14-5.76); WHITE BLOOD CELL COUNT,WBC 3.1 K/uL (3.2-11.0)
[2024-10-06 19:07] LABS: BILIRUBIN,URINE NEGATIVE (NEGATIVE); COLOR,URINE YELLOW (YELLOW); GLUCOSE,URINE 500 mg/dL (NEGATIVE); KETONES,URINE NEGATIVE (NEGATIVE); LEUKOCYTE ESTERASE,URINE TRACE (NEGATIVE); NITRITE,URINE NEGATIVE (NEGATIVE); OCCULT BLOOD,URINE NEGATIVE (NEGATIVE); PH,URINE 5.5 (5.0-8.0); PROTEIN,URINE TRACE mg/dL (NEGATIVE); UROBILINOGEN,URINE 0.2 EU/dL (0.2-1.0)
[2024-10-06 19:20] LABS: BACTERIA,URINE FEW; EPITHELIAL CELLS,URINE FEW; MUCUS,URINE MANY
[2024-10-06 19:21] LABS: AMORPHOUS SEDIMENT,URINE NOT SEEN; APPEARANCE,URINE SLIGHTLY CLOUDY (CLEAR)
[2024-10-06 19:23] LABS: A/G RATIO 0.8 (1.2-2.2); ALANINE AMINOTRANSFERASE,ALT 23 U/L (12-78); ALBUMIN 2.9 g/dL (3.4-5.0); ALKALINE PHOSPHATASE 113 U/L (46-116); ASPARTATE AMNIOTRANSFERASE,AST 31 U/L (15-37); BILIRUBIN TOTAL 0.4 mg/dL (0.2-1.0); BLOOD UREA NITROGEN,BUN 23 mg/dL (7-18); C-REACTIVE PROTEIN 2.58 mg/dL (<0.50); CALCIUM 8.7 mg/dL (8.5-10.1); CARBON DIOXIDE,CO2 26 mmol/L (21-32); CHLORIDE,CL 95 mmol/L (100-108); CREATININE 1.4 mg/dL (0.8-1.3); ESTIMATED GFR 48 mL/min (>60); GLUCOSE RANDOM 158 mg/dL (74-106); POTASSIUM,K 3.9 mmol/L (3.6-5.2); PROTEIN TOTAL,TP 6.6 g/dL (6.4-8.2); SODIUM,NA 131 mmol/L (140-148)
[2024-10-06] MEDS ORDERED: Benzonatate 100 MG Cap PO PRN (19:55)
[2024-10-06 20:14] LABS: ANION GAP 13.9 mmol/L (5.0-14.0); EST CRCL DRUG DOSING (CG) 37.66 mL/min
[2024-10-06] MEDS: cefTRIAXone 1 GM in Sodium Chloride 0.9% 50 ML IV SCH (21:02)
[2024-10-06] MEDS: Sodium Chloride 0.9% 50 ML ONE (21:02)
[2024-10-06] MEDS: Albuterol/Ipratropium 3.0-0.5 MG/3 ML Neb Soln NEB SCH (21:04)
[2024-10-06] MEDS: metFORMIN 500 MG Tab PO SCH (21:04)
[2024-10-06] MEDS: Amiodarone 200 MG Tab PO SCH (21:05)
[2024-10-06] MEDS: atorvaSTATin 20 MG Tab PO SCH (21:05)
[2024-10-06] MEDS: Lactobacillus Rhamnosus GG (Probiotic) Cap PO SCH (21:05)
[2024-10-06] MEDS: Apixaban 2.5 MG Tab PO SCH (21:05)
[2024-10-06] MEDS: predniSONE 20 MG Tab PO SCH (21:56)
[2024-10-06] MEDS: Doxycycline 100 MG in Sodium Chloride 0.9% 100 ML IV SCH (21:56)
[2024-10-06] MEDS: Acetaminophen 325 MG Tab PO PRN (23:26)
[2024-10-07] MEDS: Sodium Chloride 0.9% 1,000 ML IV ONE ×2 (01:48→06:28)
[2024-10-07 01:49] LABS: LACTIC ACID 2.8 mmol/L (0.7-2.1)
[2024-10-07 05:54] LABS: HEMOGLOBIN 11.3 g/dL (12.9-16.9); MEAN CORPUSCULAR HEMOGLOBIN 30.2 pg (31.6-35.5); MEAN CORPUSCULAR HGB CONC 33.2 g/dL (31.6-35.5); MEAN CORPUSCULAR VOLUME 90.9 fL (81.4-99.0); RED BLOOD CELL COUNT 3.74 M/uL (4.14-5.76); WHITE BLOOD CELL COUNT,WBC 3.8 K/uL (3.2-11.0)
[2024-10-07 06:08] LABS: CALCIUM 8.8 mg/dL (8.5-10.1); CREATININE 1.6 mg/dL (0.8-1.3); EST CRCL DRUG DOSING (CG) 32.95 mL/min; POTASSIUM,K 4.9 mmol/L (3.6-5.2)
[2024-10-07 06:09] LABS: ANION GAP 16.9 mmol/L (5.0-14.0)
[2024-10-07] MEDS: Multivitamins with Iron/Calcium/Folic Acid/Minerals Tab PO SCH (08:13)
[2024-10-07] MEDS: Levothyroxine 50 MCG Tab PO SCH (08:14)
[2024-10-07] MEDS: metFORMIN 500 MG Tab PO SCH (08:14)
[2024-10-07] MEDS: Pioglitazone 15 MG Tab PO SCH (08:16)
[2024-10-07] MEDS: Tamsulosin 0.4 MG Cap.ER PO SCH (08:20)
[2024-10-07] MEDS: predniSONE 20 MG Tab PO ONE (08:32)
[2024-10-07] MEDS: Lactated Ringers 1,000 ML IV SCH (14:10)
[2024-10-07] MEDS: Sodium Chloride 0.9% 1,000 ML IV SCH (19:30)
[2024-10-07 19:44] LABS: BASOPHILS PERCENT AUTO 0.4 % (0.1-1.3); HEMATOCRIT 34.5 % (38.4-49.7); HEMOGLOBIN 11.4 g/dL (12.9-16.9); IMMATURE GRAN PERCENT AUTO 0.4 % (0.0-0.7); LYMPHOCYTES ABSOLUTE AUTO 0.35 K/uL (0.8-3.3); LYMPHOCYTES PERCENT AUTO 12.4 % (11.4-47.7); MEAN CORPUSCULAR HEMOGLOBIN 30.1 pg (31.6-35.5); MONOCYTES ABSOLUTE AUTO 0.29 K/uL (0.20-0.90); MONOCYTES PERCENT AUTO 10.3 % (3.3-12.6); NEUTROPHILS ABSOLUTE AUTO 2.16 K/uL (1.0-7.6); NEUTROPHILS PERCENT AUTO 76.5 % (40.0-78.1); PLATELET COUNT,PLT 159 K/uL (130-375); RED BLOOD CELL COUNT 3.79 M/uL (4.14-5.76); WHITE BLOOD CELL COUNT,WBC 2.8 K/uL (3.2-11.0)
[2024-10-07 19:46] LABS: BASOPHILS ABSOLUTE AUTO 0.01 K/uL (0.00-0.10); IMMATURE GRAN ABSOLUTE AUTO 0.01 K/uL (0.00-0.23)
[2024-10-07] MEDS: cefTRIAXone 2 GM in Sodium Chloride 0.9% 50 ML IV SCH (20:01)
[2024-10-07] MEDS: Doxycycline 100 MG Cap PO SCH (20:01)
[2024-10-07 20:08] LABS: A/G RATIO 0.7 (1.2-2.2); ALANINE AMINOTRANSFERASE,ALT 19 U/L (12-78); ALBUMIN 2.5 g/dL (3.4-5.0); ALKALINE PHOSPHATASE 104 U/L (46-116); ASPARTATE AMNIOTRANSFERASE,AST 30 U/L (15-37); BILIRUBIN TOTAL 0.2 mg/dL (0.2-1.0); BLOOD UREA NITROGEN,BUN 22 mg/dL (7-18); CARBON DIOXIDE,CO2 22 mmol/L (21-32); CHLORIDE,CL 99 mmol/L (100-108); CREATININE 1.6 mg/dL (0.8-1.3); EST CRCL DRUG DOSING (CG) 32.95 mL/min; ESTIMATED GFR 41 mL/min (>60); GLUCOSE RANDOM 321 mg/dL (74-106); POTASSIUM,K 5.2 mmol/L (3.6-5.2); PROTEIN TOTAL,TP 6.2 g/dL (6.4-8.2); SODIUM,NA 133 mmol/L (140-148)
[2024-10-07 20:10] LABS: ANION GAP 17.2 mmol/L (5.0-14.0)
[2024-10-07] MEDS: Iopamidol 612 MG/ML 100 ML Bottle IV SCH (20:46)
[2024-10-07] MEDS: Sodium Chloride 0.9% 10 ML Syringe FLUSH ONE (20:46)
[2024-10-07] MEDS: Sodium Chloride 0.9% 80 ML IV SCH (20:47)
[2024-10-08] MEDS: Benzocaine/Cetylpyridinium/Menthol Lozenge MUCMEM PRN (02:29)
[2024-10-08 05:42] LABS: HEMATOCRIT 33.5 % (38.4-49.7); HEMOGLOBIN 11.3 g/dL (12.9-16.9); MEAN CORPUSCULAR HEMOGLOBIN 30.5 pg (31.6-35.5); MEAN CORPUSCULAR HGB CONC 33.7 g/dL (31.6-35.5); MEAN CORPUSCULAR VOLUME 90.3 fL (81.4-99.0); RED BLOOD CELL COUNT 3.71 M/uL (4.14-5.76); WHITE BLOOD CELL COUNT,WBC 4.9 K/uL (3.2-11.0)
[2024-10-08 06:04] LABS: C-REACTIVE PROTEIN 2.32 mg/dL (<0.50); CALCIUM 8.9 mg/dL (8.5-10.1); CREATININE 1.4 mg/dL (0.8-1.3); EST CRCL DRUG DOSING (CG) 37.66 mL/min; POTASSIUM,K 4.1 mmol/L (3.6-5.2)
[2024-10-08 06:05] LABS: ANION GAP 14.1 mmol/L (5.0-14.0)
[2024-10-08] MEDS: predniSONE 20 MG Tab PO SCH (07:29)
== END 2024-10-08 11:19 | disposition home or self-care (01) | DRG 871 ==
LOC: JP.MS 12:44 → OBSVTOIN 10-07 12:44
PROVIDERS: ADMIT Registered Nurse; ATTEND Internal Medicine
DX: A41.51 Sepsis due to Escherichia coli [E. coli] (principal); J96.01 Acute respiratory failure with hypoxia; J44.1 Chronic obstructive pulmonary disease with (acute) exacerbation; J98.11 Atelectasis; Z68.24 Body mass index [BMI] 24.0-24.9, adult; R65.20 Severe sepsis without septic shock; Z66 Do not resuscitate; J40 Bronchitis, not specified as acute or chronic; E11.9 Type 2 diabetes mellitus without complications; H91.90 Unspecified hearing loss, unspecified ear; I48.0 Paroxysmal atrial fibrillation; J98.01 Acute bronchospasm; N28.9 Disorder of kidney and ureter, unspecified; H54.7 Unspecified visual loss; E78.00 Pure hypercholesterolemia, unspecified; I10 Essential (primary) hypertension; N40.0 Benign prostatic hyperplasia without lower urinary tract symptoms; E03.9 Hypothyroidism, unspecified; Z86.16 Personal history of COVID-19; Z98.890 Other specified postprocedural states; Z79.899 Other long term (current) drug therapy; Z79.52 Long term (current) use of systemic steroids; Z79.01 Long term (current) use of anticoagulants; Z88.0 Allergy status to penicillin; Z96.641 Presence of right artificial hip joint; Z90.5 Acquired absence of kidney
CPT/HCPCS: 36415 ×2; 80048; 80053; 81001; 83605 ×3; 84484; 85027 ×2; 86140; 87040 ×2; 94640 ×3; A9270 ×15; J0696; J3490 ×2; J7030 ×2; J7512 ×3; 71045; 71045-26; 71260; 74177; 82947; 85025; 99222; 99232; 99238; J7120; Q9967

== ENCOUNTER 2024-11-24 07:21 | Day surgery (SDC) | payer MEDICARE ==
[2024-11-24] MEDS ORDERED: fentaNYL 50 MCG/ML SDV ONE (07:23)
[2024-11-24] MEDS ORDERED: Propofol 200 MG/20 ML SDV ONE (07:23)
[2024-11-24] MEDS: Lactated Ringers 1,000 ML IV SCH (08:09)
== END 2024-11-24 10:20 | disposition home or self-care (01) ==
LOC: JP.SDS 07:21
PROVIDERS: ATTEND Surgery
DX: D50.9 Iron deficiency anemia, unspecified (principal); D12.0 Benign neoplasm of cecum; E11.9 Type 2 diabetes mellitus without complications; Z88.0 Allergy status to penicillin
CPT/HCPCS: 00811; 45380; 88305; J2704; J3010; J7120

== ENCOUNTER 2024-12-29 06:48 | Day surgery (SDC) | payer MEDICARE ==
[2024-12-29] MEDS ORDERED: Propofol 200 MG/20 ML SDV ONE ×2 (07:05→09:56)
[2024-12-29] MEDS ORDERED: fentaNYL 100 MCG/2 ML SDV ONE (07:06)
[2024-12-29] MEDS: Lactated Ringers 1,000 ML IV SCH (07:53)
== END 2024-12-29 11:25 | disposition home or self-care (01) ==
LOC: JP.SDS 06:48
PROVIDERS: ATTEND Surgery
DX: D12.0 Benign neoplasm of cecum (principal); E11.9 Type 2 diabetes mellitus without complications; Z88.0 Allergy status to penicillin; Z86.718 Personal history of other venous thrombosis and embolism; Z79.01 Long term (current) use of anticoagulants; Z79.84 Long term (current) use of oral hypoglycemic drugs; Z79.899 Other long term (current) drug therapy
CPT/HCPCS: 00811; 45390; J2704; J3010; J7120

== ENCOUNTER 2025-01-04 18:10 | Emergency (ER) | payer MEDICARE ==
[2025-01-04 18:59] LABS: BASE EXCESS VENOUS 2.6 mm/L; BASOPHILS PERCENT AUTO 0.5 % (0.1-1.3); BICARBONATE,VENOUS 26.7 mmol/L; EOSINOPHILS PERCENT AUTO 0.2 % (0.0-5.4); IMMATURE GRAN ABSOLUTE AUTO 0.03 K/uL (0.00-0.23); IMMATURE GRAN PERCENT AUTO 0.7 % (0.0-0.7); LYMPHOCYTES ABSOLUTE AUTO 0.26 K/uL (0.8-3.3); LYMPHOCYTES PERCENT AUTO 6.4 % (11.4-47.7); MONOCYTES ABSOLUTE AUTO 0.75 K/uL (0.20-0.90); MONOCYTES PERCENT AUTO 18.5 % (3.3-12.6); NEUTROPHILS ABSOLUTE AUTO 2.98 K/uL (1.0-7.6); NEUTROPHILS PERCENT AUTO 73.7 % (40.0-78.1); O2 SATURATION VENOUS 55.9; OXYHEMOGLOBIN 54.3 %; PCO2 VENOUS 41.2 mm/Hg; PH,VENOUS 7.427 (7.350-7.450); PLATELET COUNT,PLT 147 K/uL (130-375); RED BLOOD CELL COUNT 3.87 M/uL (4.14-5.76); TOTAL HEMOGLOBIN 13.2 g/dL (13.5-18.0); WHITE BLOOD CELL COUNT,WBC 4.1 K/uL (3.2-11.0)
[2025-01-04 19:02] LABS: BASOPHILS ABSOLUTE AUTO 0.02 K/uL (0.00-0.10); EOSINOPHILS ABSOLUTE AUTO 0.01 K/uL (0.00-0.40); PO2 VENOUS 29.9 mm/Hg
[2025-01-04] MEDS: methylPREDNISolone Sodium Succinate 125 MG/2 ML SDV IM ONE (19:02)
[2025-01-04 19:33] LABS: A/G RATIO 0.8 (1.2-2.2); ALANINE AMINOTRANSFERASE,ALT 22 U/L (12-78); ASPARTATE AMNIOTRANSFERASE,AST 22 U/L (15-37); BILIRUBIN TOTAL 0.3 mg/dL (0.2-1.0); BLOOD UREA NITROGEN,BUN 19 mg/dL (7-18); CARBON DIOXIDE,CO2 27 mmol/L (21-32); CHLORIDE,CL 99 mmol/L (100-108); CREATININE 1.5 mg/dL (0.8-1.3); EST CRCL DRUG DOSING (CG) 35.15 mL/min; ESTIMATED GFR 45 mL/min (>60); GLUCOSE RANDOM 234 mg/dL (74-106); POTASSIUM,K 4.6 mmol/L (3.6-5.2); PROTEIN TOTAL,TP 6.7 g/dL (6.4-8.2); SODIUM,NA 134 mmol/L (140-148); TROPONIN I HIGH SENSITIVITY 42.9 pg/mL (<=60.3)
== END 2025-01-04 20:40 | disposition home or self-care (01) ==
LOC: JP.ED 18:10
DX: J44.1 Chronic obstructive pulmonary disease with (acute) exacerbation (principal); I48.91 Unspecified atrial fibrillation; E78.00 Pure hypercholesterolemia, unspecified; E11.9 Type 2 diabetes mellitus without complications; E03.9 Hypothyroidism, unspecified; Z86.16 Personal history of COVID-19; Z88.0 Allergy status to penicillin; Z79.01 Long term (current) use of anticoagulants; Z79.899 Other long term (current) drug therapy; Z79.84 Long term (current) use of oral hypoglycemic drugs; Z79.51 Long term (current) use of inhaled steroids
CPT/HCPCS: 36415; 71045; 80053; 82803; 84484; 85025; 93005; 94640; 96372; 99285; A9270; J2919; 93010; 99284